=== PATIENT | male | born 1945 | race Two or more races ===

== ENCOUNTER → 2017-02-04 | Outpatient (CLI) | payer MEDICARE, OTHER ==
--- NOTE | 2017-02-04 11:10 | RADRPT ---
PROCEDURE: XR bilateral knees. CLINICAL INDICATION: Knee pain TECHNIQUE: AP weightbearing, PA weightbearing, lateral weightbearing and sunrise views of each kne e are available for review. COMPARISON: None available FINDINGS: Right knee: There is calcific enthesopathy involving the anterior superior aspect of the patella. There is mild osteoarthrosis involving the medial tibial femoral compartment (joint space narrowing and the patell ofemoral compartment (osteophytosis). The osseous structures are otherwise normal in mineralization, architecture and alignment. No fract ures are identified. No osseous lesions are identified. The soft tissues are unremarkable. Left knee: There is calcific enthesopathy involving the anterior superior aspect of the patella. There is mild osteoarthrosis involving the medial tibial femoral compartment (joint space narrowing) and the cuevas lofemoral compartment (osteophytosis). The osseous structures are otherwise normal in mineralization, architecture and alignment. No fract ures are identified. No osseous lesions are identified. The soft tissues are unremarkable. IMPRESSION: Calcific enthesopathy involving the anterior superior aspect of the right and left patellae. Mild osteoarthrosis involving the right and left medial tibial femoral compartments (joint space kate rowing) and the patellofemoral compartments (osteophytosis). RPTAT: [id number] .Franck Rodriguez MD, MD Date Time Electronically viewed and signed by .Franck Rodriguez MD, on 02/04/2017 11:10 .B/
== END | disposition home or self-care (01) ==
LOC: HKI 10:22
PROVIDERS: ATTEND Orthopaedic Surgery
DX: M25.561 Pain in right knee (principal); M25.562 Pain in left knee; M22.41 Chondromalacia patellae, right knee; M22.42 Chondromalacia patellae, left knee
CPT/HCPCS: 73564; G0463